=== PATIENT | male | born 1985 | race Caucasian/White ===

== ENCOUNTER 2017-07-18 11:08 | Emergency (ER) | payer SELFPAY ==
[~2017-07-18] VITALS: Ht 165.1 cm; Wt 68.9 kg
[2017-07-18 11:35] VITALS: Ht 165.1 cm; Wt 68.9 kg
[2017-07-18 11:55] VITALS: BP 119/61
== END 2017-07-18 13:16 | disposition home or self-care (01) ==
LOC: ED 11:08
DX: S81.841A Puncture wound with foreign body, right lower leg, initial encounter (principal); W22.8XXA Striking against or struck by other objects, initial encounter; Y93.89 Activity, other specified; Y92.89 Other specified places as the place of occurrence of the external cause; Y99.8 Other external cause status
CPT/HCPCS: Q0092